=== PATIENT | female | born 2000 | race Caucasian/White ===

== ENCOUNTER 2024-06-26 10:03 | Observation (INO) | payer BC, SELFPAY ==
[2024-06-26] MEDS ORDERED: ONDANSETRON 4 MG/2 ML VIAL ONE ×2 (10:17→13:56)
[2024-06-26] MEDS ORDERED: NA CHLORIDE 0.9% 1,000 ML ONE (10:18)
[2024-06-26] MEDS ORDERED: KETOROLAC 30 MG/ML INJ ONE ×2 (10:18→13:57)
[2024-06-26 10:52] LABS: Specific Gravity 1.027 (1.005-1.030)
[2024-06-26 10:53] LABS: Specific Gravity 1.027 (1.005-1.030); Sqamous Epithelial <5 /HPF (None Seen); Urine Bacteria <20 /HPF (<20); Urine Bilirubin NEGATIVE (Negative); Urine Blood Negative (Negative); Urine Clarity Turbid (Clear); Urine Color Yellow (Yellow); Urine Culture Reflex Order NOT NEEDED; Urine Glucose NEGATIVE (Negative); Urine Ketones TRACE (Negative); Urine Microscopic Reflex YN ORDER UMIC; Urine Mucus Slight /HPF (None Seen); Urine Nitrite NEGATIVE (Negative); Urine Protein TRACE (Negative); Urine RBC None Seen /HPF (None Seen); Urine Urobilinogen Normal (Normal); Urine WBC <5 /HPF (<5); Urine pH 6.5 (5.0-7.0)
[2024-06-26 11:02] LABS: Albumin/Globulin Ratio 1.3 (1.1-1.8); Anion Gap 9.7 mEq/L (5.0-15.0); Bilirubin Total 0.6 mg/dL (0.2-1.0); Globulin 3.2 g/dL (2.3-3.5); Potassium 3.7 mEq/L (3.5-5.1); Protein, Total 7.2 g/dL (6.4-8.2)
--- NOTE | 2024-06-26 12:02 | RAD REPORT ---
EXAMINATION: CT ABDOMEN AND PELVIS WITH CONTRAST CLINICAL INDICATION: Abdominal pain TECHNIQUE: CT abdomen and pelvis was performed, after the administration of 100 cc Isovue-300.. Sagit abraham and coronal reconstructions were obtained. One or more of the following dose reduction techniques were used: Automated exposure control, adjustment of the mA and kV according to patient si ze, and iterative reconstruction. Unless otherwise specified, incidental findings do not require dedicated imaging follow-up. [id number]. Oral contrast was not given which limits evaluation of bowel and appendix. COMPARISON: .None FINDINGS: Liver,pancreas, adrenals and kidneys appear unremarkable 1.8 cm splenic cyst. No evidence of diverticulitis. The appendix is mildly enlarged. Mild stranding within the adjacent fat. Several appendicoliths are p resent. The distal aspect of the appendix appears retrocecal. Small amount of free fluid. No abscess. No free air : IMPRESSION: The patient likely has appendicitis
--- NOTE | 2024-06-26 12:12 | EDPHYS ---
Physician Documentation [facility] Name: Zhane Gallego Age: 24 yrs Sex: Female : 2000 Arrival Date: 06/26/2024 Time: 10:03 Bed 17 Private MD: ED Physician Addy Dickens HPI: 06/26 10:09 This 24 yrs old Female presents to ER via Unassigned with complaints of Abdominal Pain, kb Nausea, Diarrhea. 10:09 Pt is a 24 year old female who presents for RLQ pain that started at 0500 today. kb Reports nausea and diarrhea. Denies vomiting, fever. . 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 - Infectious Disease History:: Denies. - Social history:: Smoking status: Patient denies any tobacco usage or history of. ROS: 10:09 Constitutional: As per HPI kb Exam: 10:09 Constitutional: This is a well developed, well nourished patient who is awake, alert, kb and in no acute distress. Head/Face: Normocephalic, atraumatic. ENT: Moist Mucous membranes Cardiovascular: Regular rate Respiratory: Respirations even and unlabored. No increased work of breathing. Talking in full sentences Skin: Warm, dry with normal turgor. Normal color. MS/ Extremity: Pulses equal, no cyanosis. Neurovascular intact. Full, normal range of motion. Neuro: Awake and alert, GCS 15, oriented to person, place, time, and situation. Vital Signs: 10:11 BP 124 / 74; Pulse 84; Resp 16; Temp 98.2(TE); Pulse Ox 100% on R/A; Weight 97.52 kg; hb Height 5 ft. 4 in. ; Pain 6/10; 11:30 BP 122 / 72; Pulse 70; Resp 20; Pulse Ox 100% on R/A; kj2 12:12 BP 122 / 68; Pulse 65; Temp 98.7; Pulse Ox 99% ; am7 12:30 BP 113 / 63; Pulse 64; Resp 16; Pulse Ox 100% ; db 10:11 Body Mass Index 36.90 (97.52 kg, 162.56 cm) hb 10:11 Pain Scale: Adult hb MDM: 10:09 Medical Screening Exam initiated kb 12:09 Data reviewed: vital signs, nurses notes. kb 12:11 Differential diagnosis: appendicitis, non-specific abd pain, Ovarian Torsion. kb Consideration of Admission/Observation Patient was admitted/placed on observation. Escalation of care including admission/observation considered. Management of patient was discussed with the following: Hospitalist: Hospitalist team, pt accepted for admission under Dr Lala. Radiologic Technology Program Director: Dr Stinson accepts pt for consult and will take to OR shortly. Historians other than the Patient: Parent: father. Counseling: I had a detailed discussion with the patient and/or guardian regarding the historical points, exam findings, and any diagnostic results supporting the discharge/admit diagnosis, lab results, radiology results, the need for further work-up and treatment in the hospital. 06/26 10:11 Order name: CBC with Diff kb 06/26 10:11 Order name: CMP; Complete Time: 11:11 kb 06/26 10:11 Order name: Lipase; Complete Time: 11:11 kb 06/26 10:11 Order name: Test, Urine; Complete Time: 10:55 kb 06/26 10:11 Order name: Urinalysis w/ reflexes; Complete Time: 10:55 kb 06/26 12:55 Order name: Urinalysis w/ reflexes EDMS 06/26 12:55 Order name: Basic Metabolic Panel EDMS 06/26 12:55 Order name: Basic Metabolic Panel EDMS 06/26 12:56 Order name: Basic Metabolic Panel EDMS 06/26 12:56 Order name: CBC with Automated Diff EDMS 06/26 12:56 Order name: CBC with Automated Diff EDMS 06/26 12:56 Order name: CBC with Automated Diff EDMS 06/26 12:56 Order name: Magnesium EDMS 06/26 12:56 Order name: Magnesium EDMS 06/26 12:56 Order name: Magnesium EDMS 06/26 12:56 Order name: Phosphorus EDMS 06/26 12:56 Order name: Phosphorus EDMS 06/26 12:56 Order name: Phosphorus EDMS 06/26 10:11 Order name: CT Abd/Pelvis - IV Contrast Only; Complete Time: 12:04 kb 06/26 12:41 Order name: CONS Physician Consult EDLA 06/26 10:11 Order name: IV Saline Lock; Complete Time: 10:42 kb 06/26 10:11 Order name: Labs collected and sent; Complete Time: 10:42 kb Administered Medications: 10:25 Drug: Ondansetron IVP 4 mg IVP once; over 2 minutes Route: IVP; Site: right antecubital;kj2 12:22 Follow up: Response: No adverse reaction kj2 10:25 Drug: NS 0.9% IV 1000 ml IV at 1 bolus Per protocol; to be given as a bolus over 60 kj2 minutes Route: IV; Rate: 1 bolus; Site: right antecubital; 12:22 Follow up: IV Status: Completed infusion; IV Intake: 1000ml kj2 10:43 Drug: TORadol - Ketorolac IVP 15 mg IVP once Route: IVP; Site: right antecubital; kj2 12:22 Follow up: Response: No adverse reaction kj2 12:41 Drug: Piperacillin-Tazobactam IVPB 3.375 grams IVPB once over 60 mins; (mix in NS 100 kj2 mL) Route: IVPB; Infused Over: 60 mins; Site: right antecubital; 12:54 Follow up: IV Status: Infusion continued upon admission; IV Intake: 50ml kj2 Disposition: 14:23 Co-signature as Attending Physician, Addy Dickens MD I reviewed the patient's care rt provided by the Advanced Practice Provider and agree with the diagnosis and treatment plan. Disposition Summary: 06/26/24 12:12 Hospitalization Ordered Notes: Hospitalization Status: Observation kb Provider: Angel Lala Location: Telemetry/MedSurg (observation) kb Condition: Stable kb Problem: new kb Symptoms: are unchanged kb Bed/Room Type: Standard Room Assignment: kb Diagnosis - Unspecified acute appendicitis kb Forms: - Medication Reconciliation Form kb - SBAR form kb - Leadership Thank You Letter kb Signatures: Dispatcher [employer] EDLA Rosina Galvin FNP-C FNP-Kirsten Saez, RN RN Addy Benitez MD MD rt Tisha Morgan RN RN kj2 Corrections: (The following items were deleted from the chart) 10:12 10:12 CBC+H.LAB.BRZ ordered. EDMS EDMS 10:12 10:12 COMPREHENSIVE METABOLIC PANEL+C.LAB.BRZ ordered. EDMS EDMS 10:12 10:12 LIPASE+C.LAB.BRZ ordered. EDMS EDMS 10:12 10:12 Test, Urine+UC.LAB.BRZ ordered. EDMS EDMS 10:12 10:12 Urinalysis+U.LAB.BRZ ordered. EDMS EDMS 10:13 10:13 Abdomen Pelvis W Con+CT.RAD.BRZ ordered. EDMS EDMS
--- NOTE | 2024-06-26 12:12 | ER ---
Nurse's Notes [facility] Name: Zhane Gallego Age: 24 yrs Sex: Female : 2000 Arrival Date: 06/26/2024 Time: 10:03 Bed 17 Private MD: Diagnosis: Unspecified acute appendicitis Presentation: 06/26 10:11 Chief complaint: RLQ pain and nausea since 0500 today. Denies V/fever. Coronavirus hb screen: At this time, the client does not indicate any symptoms associated with coronavirus-19. Ebola Screen: No symptoms or risks identified at this time. Initial Sepsis Screen: Does the patient meet any 2 criteria? No. Patient's initial sepsis screen is negative. Does the patient have a suspected source of infection? No. Patient's initial sepsis screen is negative. Risk Assessment: Do you want to hurt yourself or someone else? Patient reports no desire to harm self or others. Onset of symptoms was June 26, 2024. 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 - Infectious Disease History:: Denies. - Social history:: Smoking status: Patient denies any tobacco usage or history of. Screenin:25 [facility] ED Fall Risk Assessment (Adult) History of falling in the last 3 months, kj2 including since admission No falls in past 3 months (0 pts) Confusion or Disorientation No (0 pts) Intoxicated or Sedated No (0 pts) Impaired Gait No (0 pts) Mobility Assist Device Used No (0 pt) Altered Elimination No (0 pt) Score/Fall Risk Level 0 - 2 = Low Risk Maintained a safe environment, Hourly rounding (assess needs \T\ fall precautionary measures) done. Abuse screen: Denies threats or abuse. Denies injuries from another. Nutritional screening: No deficits noted. Tuberculosis screening: No symptoms or risk factors identified. Assessment: 10:15 General: Appears in no apparent distress. uncomfortable, Behavior is calm, cooperative. kj2 Pain: Complains of pain in RIGHT LOWER QUADRANT Pain currently is 9 out of 10 on a pain scale. Neuro: Level of Consciousness is awake, alert, obeys commands, Oriented to person, place, time, situation. Cardiovascular: Patient's skin is warm and dry. Respiratory: Airway is patent Respiratory effort is even, unlabored. GI: Abdomen is tender to palpation. : No signs and/or symptoms were reported regarding the genitourinary system. 11:28 Reassessment: Patient appears in no apparent distress at this time. Patient and/or kj2 family updated on plan of care and expected duration. Pain level reassessed. Patient is alert, oriented x 3, equal unlabored respirations, skin warm/dry/pink. 12:22 Reassessment: Patient appears in no apparent distress at this time. Patient and/or kj2 family updated on plan of care and expected duration. Pain level reassessed. Patient is alert, oriented x 3, equal unlabored respirations, skin warm/dry/pink. 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 db 12:53 GI: Bowel sounds present in upper quadrants. kj2 Vital Signs: 10:11 BP 124 / 74; Pulse 84; Resp 16; Temp 98.2(TE); Pulse Ox 100% on R/A; Weight 97.52 kg; hb Height 5 ft. 4 in. ; Pain 6/10; 11:30 BP 122 / 72; Pulse 70; Resp 20; Pulse Ox 100% on R/A; kj2 12:12 BP 122 / 68; Pulse 65; Temp 98.7; Pulse Ox 99% ; am7 12:30 BP 113 / 63; Pulse 64; Resp 16; Pulse Ox 100% ; db 10:11 Body Mass Index 36.90 (97.52 kg, 162.56 cm) hb 10:11 Pain Scale: Adult hb ED Course: 10:08 Patient arrived in ED. im 10:08 Kirsten Lindsey, WILLY is Primary Nurse. hb 10:09 Rosina Galvin FNP-C is PHCP. kb 10:09 Addy Dickens MD is Attending Physician. kb 10:12 Triage completed. hb 10:13 Arm band placed on. hb 10:25 Patient has correct armband on for positive identification. Bed in low position. Call kj2 light in reach. 10:25 Provided Education on: CALL LIGHT. kj2 10:25 Inserted saline lock: 20 gauge in right antecubital area, using aseptic technique. kj2 Blood collected. Flushed with 10 mL NS. 10:36 CBC with Diff Sent. kj2 10:36 CMP Sent. kj2 10:42 Test, Urine Sent. kj2 10:42 Lipase Sent. kj2 10:42 Urinalysis w/ reflexes Sent. kj2 11:[address] via wheelchair. db 11:32 CT Abd/Pelvis - IV Contrast Only In Process Unspecified. EDMS 12:12 Angel Lala is Hospitalizing Provider. kb 12:52 No provider procedures requiring assistance completed. Patient admitted, IV remains in kj2 place. Administered Medications: 10:25 Drug: Ondansetron IVP 4 mg IVP once; over 2 minutes Route: IVP; Site: right antecubital;kj2 12:22 Follow up: Response: No adverse reaction kj2 10:25 Drug: NS 0.9% IV 1000 ml IV at 1 bolus Per protocol; to be given as a bolus over 60 kj2 minutes Route: IV; Rate: 1 bolus; Site: right antecubital; 12:22 Follow up: IV Status: Completed infusion; IV Intake: 1000ml kj2 10:43 Drug: TORadol - Ketorolac IVP 15 mg IVP once Route: IVP; Site: right antecubital; kj2 12:22 Follow up: Response: No adverse reaction kj2 12:41 Drug: Piperacillin-Tazobactam IVPB 3.375 grams IVPB once over 60 mins; (mix in NS 100 kj2 mL) Route: IVPB; Infused Over: 60 mins; Site: right antecubital; 12:54 Follow up: IV Status: Infusion continued upon admission; IV Intake: 50ml kj2 Medication: 10:49 VIS not applicable for this client. kj2 Intake: 12:22 IV: 1000ml; Total: 1000ml. kj2 12:54 IV: 50ml; Total: 1050ml. kj2 Outcome: 12:12 Decision to Hospitalize by Provider. kb 12:53 Admitted to OR accompanied by nurse, via wheelchair, kj2 12:53 Condition: stable 12:53 Instructed on the need for admit, 13:10 Patient left the ED. kj2 Signatures: Dispatcher [employer] EDMS Sohail Galvinistin, JOB SERVICE CONSULTANT-C JOB SERVICE CONSULTANT-Ckb Kirsten Lindsey, RN RN hb Tasia Daniel, RN RN db Rabia Temple Krystal, RN RN kj2 Jayda Bearden am7
[2024-06-26] MEDS ORDERED: PIPERACIL/TAZO 3.375 GM VIAL IV ONE (12:32)
[2024-06-26] MEDS ORDERED: NA CHLORIDE 0.9% 100 ML ONE (12:32)
[2024-06-26] MEDS ORDERED: MIDAZOLAM HCL 2 MG/2 ML INJ ONE ×2 (12:37→13:49)
[2024-06-26] MEDS ORDERED: propofoL 200 MG/20 ML VIAL IV ONE (12:37)
[2024-06-26] MEDS ORDERED: FENTANYL CITR 100 MCG/2 ML ONE (12:37)
[2024-06-26] MEDS ORDERED: EPHEDRINE SULF 50 MG/ML VIAL ONE (12:38)
[2024-06-26] MEDS ORDERED: LIDOCAINE 2% MPF 5 ML VIAL ONE (12:46)
[2024-06-26] MEDS: Ringers Lactate 1,000 ML IV ONE (12:55)
[2024-06-26] MEDS ORDERED: MORPHINE 2 MG/ML SYR IV PRN (12:55)
[2024-06-26] MEDS ORDERED: HYDROCODONE/APAP 5/325 MG TAB PO PRN (12:56)
[2024-06-26] MEDS: SUCCINYLCHOLINE 20 MG/ML (10 ML) IV ONE (13:04)
--- NOTE | 2024-06-26 13:04 | P.HP ---
Certification for Inpatient Patient admitted to: Observation With expected LOS: <2 Midnights Patient will require the following post-hospital care: None Practitioner: I am a practitioner with admitting privileges, knowledge of patient current condition, hospital course, and medical plan of care. Services: Services provided to patient in accordance with Admission requirements found in Title 42 Section 412.3 of the Code of Federal Regulations Patient History Date of Service: 06/26/24 Reason for admission: Acute appendicitis History of Present Illness: Zhane Gallego is a 24-year-old female with no significant past medical history who presents with nausea and vomiting associated abdominal pain that started at [address] abdomen pelvis indicates acute appendicitis. No significant abnormalities found on BMP, CBC pending. Zosyn, antiemetics, and pain medicine given in the ED. Dr. Stinson consulted and plans for surgery today. Zhane be admitted to hospitalist service for further treatment of acute appendicitis. Allergies No Known Allergies Allergy (Unverified 06/26/24 13:47) Home Medications: Sertraline [Zoloft*] 200 mg PO ONCE 06/26/24 - Past Medical/Surgical History Past Medical History: Patient denies medical history Past Surgical History: Patient denies surgical history - Social History Smoking Status: Never smoker Alcohol use: No CD- Drugs: No Review of Systems Gastrointestinal: Nausea, Vomiting, Abdominal Pain Physical Examination - Physical Exam General: Alert, In no apparent distress, Oriented x3 HEENT: Atraumatic, Normocephalic Neck: Supple, 2+ carotid pulse no bruit Respiratory: Clear to auscultation bilaterally, Normal air movement Cardiovascular: Normal pulses, Regular rate/rhythm, Normal S1 S2 Capillary refill: <2 Seconds Gastrointestinal: Normal bowel sounds, Soft and benign, Tenderness Musculoskeletal: No clubbing Integumentary: No rashes Neurological: Normal speech, Normal tone - Studies Laboratory Data (last 24 hrs) 06/26/24 10:25 Sodium 139 Potassium 3.7 BUN 9 Creatinine 0.76 Glucose 99 Total Bilirubin 0.6 AST 11 L ALT 22 Alkaline Phosphatase 62 Lipase 36 Assessment and Plan - Plan Assessment and plan Acute appendicitis Nausea/vomiting associated with abdominal pain -Consult Dr. Stinson, surgery today -Telemetry for abdominal surgery purposes -Zosyn every 12 -Pain meds, antiemetics -Do not lift greater than 10 pounds -Gentle IV fluids -FLD post op - test negative DVT PPx SCDs for now Full code LOS 24-hour OBS Discharge Plan: Home Plan to discharge in: 24 Hours - Advance Directives Does patient have a Living Will: No Does patient have a Durable POA for Healthcare: No
[2024-06-26] MEDS: ROCURONIUM 50 MG/5 ML VIAL IV ONE (13:05)
--- NOTE | 2024-06-26 13:45 | P.BOP ---
Preoperative diagnosis: acute appendicitis retrocecal Postoperative diagnosis: same Primary procedure: laparoscopic appendectomy Estimated blood loss: <10cc Specimen: leroy Findings: as above Anesthesia: General Complications: None Transferred to: Recovery Room Condition: Good
[2024-06-26] MEDS ORDERED: METOCLOPRAMIDE 10 MG/2mL INJ ONE (13:57)
[2024-06-26] MEDS ORDERED: NEOSTIGMINE 1 MG/ML -10 ML VIAL ONE (14:00)
[2024-06-26] MEDS ORDERED: GLYCOPYRROLATE 0.2 MG/ML SYR ONE ×3 (14:00)
[2024-06-26] MEDS ORDERED: Mastisol Adhesive Liq ONE (14:07)
--- NOTE | 2024-06-26 14:07 | CON ---
Date of Consultation: 06/26/2024 Reason For Service: Acute appendicitis. History Of Present Illness: This is a case of a 24-year-old patient who developed suprapubic and rig ht lower quadrant pain starting at 5 o'clock this morning. It started periumbilical moved to the rig ht upper quadrant. This morning, it got worse and then she decided to come to the ER. Found to have acute appendicitis. Surgical consult was obtained. Past Medical History: None. Medications: She used an IV injection for losing weight. Past Surgical History: No surgeries before. Allergies: NO ALLERGIES. Family History: Noncontributory. Social History: She does not smoke. She does not drink alcohol. Review of Systems: Abdominal pain. Nausea. No fever. No shortness of breath. No chest pain. No dysuria. No hematur ia. No hematochezia. No melena. Review of Systems: Ten points otherwise unremarkable. Physical Examination: Vital Signs: Stable. General: Patient is awake and alert. HEENT: Pupils are equal and reactive. Anicteric. Neck: Supple. Chest: Clear. Heart: S1, S2. Abdomen: Right lower quadrant tenderness with Rovsing and psoas signs positive. Breasts: Deferred. Pelvic: Deferred. Rectal: Deferred. Extremities: Good capillary refill. Cranial nerves 2 through 12 are grossly within normal limits. Laboratory Data: Sodium is 139, potassium 3.7, chloride is 109, glucose 79. Her CAT scan of the abd omen and pelvis shows appendix enlarged, stranding around the appendix, several appendicolith are pre sent and the distal appendix appeared to be retrocecal. Assessment: 24-year-old patient with a retrocecal acute appendicitis, abdominal pain, guarding. Jose Antonio efits, alternatives, and risks of laparoscopic possible open appendectomy fully explained, which incl ude, but not limited to, infection, bleeding, damage to adjacent structures, anesthesia complication, OH, and even . She also understands this may not relieve any symptoms. She might need more th an one surgical intervention. She understood and signed the consent. The OR was immediately called. AMA/MODL Voice ID: [id number] Report ID: [id number]
[2024-06-26 14:31] VITALS: O2SAT 100
--- NOTE | 2024-06-26 15:07 | OP ---
Date of Procedure: 06/26/2024 Surgeon: Everardo Stinson MD Diagnosis: Estimated Blood Loss: Less than 10 cc. Procedure: Laparoscopic appendectomy. Finding: Acute appendicitis, retrocecal. Anesthesia: General plus local. Complications: None. Indications: This is the case of a 24-year-old patient who comes to us with acute appendicitis, retr ocecal. The benefits, alternatives, risks of laparoscopic possible open appendectomy fully explained which include, but not limited to infection, bleeding, damage to adjacent structures, anesthesia com plication, ID, even . She also understands this may not relieve her symptoms, she might need mo re than one surgical intervention. She understood, signed consent. Description Of Procedure: The patient brought to the operating room, placed in supine position. Ane sthesia was induced without complication. Abdominal area was prepped and draped in the usual sterile fashion. Marcaine 0.5% was injected for local anesthetic followed by sharp incision of the skin in the infraumbilical region. Incision was carried down to fascia, which was opened under direct vision . Vicryl #1 placed inside the fascia. Yolette trocar was carefully introduced. No bleeding was obta ined. I placed 2 more trocars, 5 mm each one of them, 1 in the suprapubic and left lower quadrant un bobbi direct visualization. This allowed me to visualize a partially retrocecal appendix, with an infl pasha distal half of appendix, so with the help of LigaSure, we were able to mobilize the cecum enough to be able to create a window in the base of the appendix and transect that with an Endo-DIEUDONNE 45 mm n onvascular. The mesoappendix was transected with the help of LigaSure. No bowel leak. No bleeding. At that moment, I proceeded to remove the appendix using an endobag through the umbilical incision. Everything was inspected once again. No bowel leak. No bleeding. At that moment, I proceeded to remove the trocars under direct vision after irrigation and suction. Deflated pneumoperitoneum. Tammy sed the fascia with #1 Vicryl, irrigated subcutaneous tissue, closed that with 3-0 chromic and skin w ith 3-0 chromic subcuticular. Sponge count, instrument counts correct. The patient tolerated the pr ocedure well. The patient on her way to Recovery in stable condition. HM/MODL Voice ID: [id number] Report ID: [id number]
[2024-06-26 15:22] LABS: White Blood Count ND thou/uL (4.3-10.9)
[2024-06-26 15:23] LABS: Absolute Basophils ND K/uL (0-0.5); Absolute Eosinophils ND K/uL (0-0.5); Absolute Lymphocytes (CBC) ND K/uL (0.7-4.9); Absolute Monocytes ND K/uL (0.1-1.3); Absolute Neutrophil ND K/uL (1.8-8.0); Basophils % ND % (0-1.3); Eosinophils % ND % (0-4.4); Hematocrit ND % (36.0-45.0); Hemoglobin ND g/dL (12.0-15.0); Lymphocytes % ND % (15.3-44.8); MCH ND pg (27.0-35.0); MCHC ND g/dL (32.0-36.0); MCV ND fL (80-100); MPV ND fL (7.6-11.3); Monocytes % ND % (3.3-12.3); Neutrophils % ND % (41.7-73.7); Nucleated RBC Absolute Count ND (0-0); Nucleated Red Blood Cells % ND % (0-0); Platelet Distribution Width ND fL (9.0-17.0); Platelets ND thou/uL (152-406); RBC Red Blood Cell Count ND M/uL (3.86-4.86); Red Cell Distribution Width ND % (12.1-15.2)
[2024-06-26] MEDS: NA CHLORIDE 0.9% 1,000 ML IV SCH (15:31)
[2024-06-26 18:45] VITALS: BMI 36.8
[2024-06-26] MEDS ORDERED: ONDANSETRON 4 MG/2 ML VIAL IV PRN (18:51)
[2024-06-26] MEDS: ACETAMINOPHEN 325 MG TABLET PO PRN (20:12)
[2024-06-26] MEDS: PIPER TAZO 3.375 GM in NA CHLORIDE 0.9% 100 ML IV SCH (20:12)
[2024-06-27 06:18] LABS: Absolute Eosinophils 0.1 K/uL (0-0.5); Absolute Lymphocytes (CBC) 2.3 K/uL (0.7-4.9); Absolute Monocytes 0.5 K/uL (0.1-1.3); Absolute Neutrophil 3.6 K/uL (1.8-8.0); Basophils % 0.3 % (0-1.3); Eosinophils % 0.9 % (0-4.4); Hematocrit 35.5 % (36.0-45.0); Hemoglobin 12.3 g/dL (12.0-15.0); Lymphocytes % 35.2 % (15.3-44.8); MCH 30.5 pg (27.0-35.0); MCHC 34.5 g/dL (32.0-36.0); MCV 88.5 fL (80-100); MPV 10.4 fL (7.6-11.3); Monocytes % 8.5 % (3.3-12.3); Neutrophils % 55.1 % (41.7-73.7); Platelets 154 thou/uL (152-406); RBC Red Blood Cell Count 4.01 M/uL (3.86-4.86); Red Cell Distribution Width 12.9 % (12.1-15.2)
[2024-06-27 06:32] LABS: Anion Gap 7.7 mEq/L (5.0-15.0); Magnesium 2.1 mg/dL (1.6-2.4); Phosphorus 2.3 mg/dL (2.5-4.9); Potassium 3.7 mEq/L (3.5-5.1)
[2024-06-27] MEDS: POTASS/SODIUM PHOSPHATE 1 PKT POWD.PACK PO SCH (09:25)
[2024-06-27] MEDS: POTASSIUM CL SA 10 MEQ TAB PO ONE (09:26)
--- NOTE | 2024-06-27 10:01 | P.DS ---
Admission Date: 06/26/24 Discharge Date: 06/27/24 Disposition: ROUTINE DISCHARGE Discharge Condition: GOOD Reason for Admission: Acute appendicitis Brief History of Present Illness: Zhane Gallego is a 24-year-old female with no significant past medical history who presents with nausea and vomiting associated abdominal pain that started at [address] abdomen pelvis indicates acute appendicitis. No significant abnormalities found on BMP, CBC pending. Zosyn, antiemetics, and pain medicine given in the ED. Dr. Stinson consulted and plans for surgery today. Zhane be admitted to hospitalist service for further treatment of acute appendicitis. Vital Signs/Physical Exam: Temp Pulse Resp BP Pulse Ox 98.2 F 76 22 H 92/55 L 97 06/27/24 08:00 06/27/24 08:00 06/27/24 08:00 06/27/24 08:00 06/27/24 08:00 Laboratory Data at Discharge: WBC 6.50 thou/uL (4.3-10.9) 06/27/24 05:30 Hgb 12.3 g/dL (12.0-15.0) 06/27/24 05:30 Hct 35.5 % (36.0-45.0) L 06/27/24 05:30 Plt Count 154 thou/uL (152-406) 06/27/24 05:30 Sodium 142 mEq/L (136-145) 06/27/24 05:30 Potassium 3.7 mEq/L (3.5-5.1) 06/27/24 05:30 BUN 6 mg/dL (7-18) L 06/27/24 05:30 Creatinine 0.67 mg/dL (0.55-1.02) 06/27/24 05:30 Glucose 88 mg/dL (74-106) 06/27/24 05:30 Phosphorus 2.3 mg/dL (2.5-4.9) L 06/27/24 05:30 Magnesium 2.1 mg/dL (1.6-2.4) 06/27/24 05:30 Total Bilirubin 0.6 mg/dL (0.2-1.0) 06/26/24 10:25 AST 11 U/L (15-37) L 06/26/24 10:25 ALT 22 U/L (13-56) 06/26/24 10:25 Alkaline Phosphatase 62 U/L (45-117) 06/26/24 10:25 Lipase 36 U/L (13-75) 06/26/24 10:25 Home Medications: Sertraline [Zoloft*] 200 mg PO ONCE 06/26/24 Amox/Clavulanate [Augmentin 875-125 Tab] 875 mg PO BID 5 Days #10 tab 06/27/24 traMADol HCL [Ultram*] 50 mg PO Q6H PRN 4 Days #15 tab 06/27/24 New Medications: Amox/Clavulanate [Augmentin 875-125 Tab] 875 mg PO BID 5 Days #10 tab traMADol HCL [Ultram*] 50 mg PO Q6H PRN 4 Days #15 tab PRN Reason: Pain Physician Discharge Instructions: 1. Please call and schedule a follow-up appointment with your PCP in 3-5 days - Please follow-up with your PCP for medication refills/adjustments 2. Please call and schedule a follow-up appointment with Dr. Stinson in one week 3. Continue soft GI diet, advance as tolerated 4. activity restrictions, do not lift greater than 10 pounds for two days 5. Return to the ED if symptoms worsen New medications Tramadol 50 mg Q6H x 15 doses Augmentin 875 mg twice daily x 5 days Wound care instructions Keep surgical area clean and dry for 48h then may remove outer dressing and shower. Keep sterile strips intact. Diet: GI soft Activity: No lifting more than 10 lbs Followup: Everardo Stinson MD [ACTIVE - CAN ADMIT] - 1 Week Vickie Kern MD [Primary Care Provider] - If your Symptoms Worsen
[2024-06-27 13:25] VITALS: BP 118/61; TEMP 97.8
== END 2024-06-27 15:03 | disposition home or self-care (01) ==
LOC: ER 10:03 → ERHOLD 12:18 → 2ND 14:15
PROVIDERS: ADMIT Internal Medicine; ATTEND Internal Medicine
PROC: 0DTJ4ZZ Resection of Appendix, Percutaneous Endoscopic Approach (ICD-10-PCS; principal; 2024-06-26 13:00)
DX: K35.80 Unspecified acute appendicitis (principal)
CPT/HCPCS: 85025 ×2; 81001; 80048; 36415; 83735; 81025; 84100; 83690; 80053; 74177; 94010; 44970; Q9967; J2704; J2710; J2765; J2543 ×3; J2003; J2250 ×2; J3010; J2405 ×2; J7120; J7030 ×3; A4314; 96361; 96374; 96375; 99285; G0378